=== PATIENT | female | born 1955 | race Caucasian/White ===

== ENCOUNTER 2019-11-17 10:40 | Outpatient (CLI) | payer BC, SELFPAY ==
--- NOTE | ~2019-11-17 | MM_ITS ---
EXAMINATION: MM screening [facility] BI w kavon HISTORY: Screening mammogram TECHNIQUE: Craniocaudal and mediolateral oblique 3-D tomosynthesis images were obtained and synthetic 2-D images were generated. CAD analysis was submitted and interpreted. COMPARISON: Comparison to multiple prior studies sequentially, with oldest reviewed study dated 03/2019. BREAST PARENCHYMAL COMPOSITION: There are scattered areas of fibroglandular density. FINDINGS: There is no evidence of suspicious mass, calcification, or architectural distortion to sugg est malignancy in either breast. There has been no suspicious interval change. IMPRESSION: 1. No mammographic evidence of malignancy. 2. Recommend routine screening mammography in one year. BI-RADS Category 1: Negative Reviewed, dictated and finalized at location A.
== END 2019-11-17 10:41 | disposition home or self-care (01) ==
LOC: ANHIMG 10:44
PROVIDERS: PCP Family Medicine; Visit Provider Obstetrics & Gynecology
DX: Z12.31 Encounter for screening mammogram for malignant neoplasm of breast (principal)
CPT/HCPCS: 77063; 77067

== ENCOUNTER 2021-07-20 10:31 | Outpatient (CLI) | payer MEDICARE, SELFPAY ==
--- NOTE | ~2021-07-20 | XR_ITS ---
EXAMINATION: XR lumbar spine min 4V EXAM DATE: 07/20/2021 11:03 INDICATION: M54.5 - Low back pain-General, No Fall, NKI . TECHNIQUE: Lumber spine frontal, lateral, bilateral oblique projections. Coned down frontal and lat eral L5-S1 lumbar projections for interpretation. There is no prior study for comparison. FINDINGS: There is moderate disc disease at L4-5 and L5-S1, mild to moderate at the L2-3 and L3-4 lev els. The vertebral body heights are maintained. Sacrum, sacroiliac joints, sacral arcuate lines are i ntact. No spondylolysis. The vertebral bodies are aligned in the AP dimension. Mild aortic arterioscl erosis. There are cholecystectomy clips. Moderate lower lumbar facet arthropathy. IMPRESSION: Moderate lower lumbar spondylosis. Reviewed, dictated and finalized at location A. GER OB
== END 2021-07-20 10:32 | disposition home or self-care (01) ==
LOC: ANHIMG 10:37
PROVIDERS: PCP Family Medicine; Visit Provider Family Medicine
DX: M47.896 Other spondylosis, lumbar region (principal)
CPT/HCPCS: 72110

== ENCOUNTER 2021-10-23 15:08 | Outpatient (CLI) | payer MEDICARE, SELFPAY ==
--- NOTE | ~2021-10-23 | DEXA_ITS ---
Bone Density Report Name: ALEXANDRA JJ Age: 66 Sex: Female Ethnicity: White Date of : 1955 Indication: postmenopausal; screening for osteoporosis; Referring Provider: CARLOS ZARAGOZA Study: Bone densitometry was performed. Exam Date: October 23, 2021 Accession number: [id number] Bone Density: Region BMD T-score Z-score Classification AP Spine(L1-L4) 0.951 -0.9 1.1 Normal Femoral Neck (Left) 0.817 -0.3 1.4 Normal Total Hip (Left) 1.061 1.0 2.3 Normal Femoral Neck (Right) 0.750 -0.9 0.8 Normal Total Hip (Right) 0.996 0.4 1.8 Normal Total Hip Mean 1.029 0.7 2.1 Normal World Health Organization criteria for BMD impression classify patients as: Normal (T-score at or above -1.0), Osteopenia (T-score between -1.0 and -2.5), or Osteoporosis (T-score at or below -2.5). 10-year Fracture Risk: FRAX not reported because: All T-scores for Spine Total, Hip Total, Femoral Neck at or above -1.0 Clinical Information Provided by Patient: Patient maximum height was 62 Menopause Age: 49 No regular weight bearing exercise Does not regularly consume dairy products Drinks caffeinated beverages Onset of menses at age 12 Number of children 3 Impression: The patient has normal bone mass. Discussion: BONE DENSITY IS ABOVE THE MINIMUM DESIRABLE LEVEL AT ALL SKELETAL SITES TESTED. This patient?s bone mineral density is above the minimum desirable level (T-score -1.0 or better) at all sites measured. The patient should follow a healthful lifestyle (good nutrition with adequate calcium and vitamin D, and appropriate weight-bearing exercise). Follow-Up: Consider repeating this study in 5 years or sooner if there is some new clinical indication. Reported by: KAREY on 10/29/2021 4:31:00 PM. Reviewed, dictated and finalized at location ABipin [facility]
--- NOTE | ~2021-10-23 | MM_ITS ---
EXAMINATION: MM screening [facility] BI w kavon HISTORY: Screening mammogram TECHNIQUE: Craniocaudal and mediolateral oblique 3-D tomosynthesis images were obtained and synthetic 2-D images were generated. CAD analysis was submitted and interpreted. COMPARISON: 11/17/2019, 10/30/2018, 10/14/2017 bilateral screening mammogram examinations BREAST PARENCHYMAL COMPOSITION: The breasts are almost entirely fatty. FINDINGS: There is no evidence of suspicious mass, calcification, or architectural distortion to sugg est malignancy in either breast. There has been no suspicious interval change. IMPRESSION: 1. No mammographic evidence of malignancy. 2. Recommend routine screening mammography in one year. BI-RADS Category 1: Negative Reviewed, dictated and finalized at location A.
== END 2021-10-23 15:09 | disposition home or self-care (01) ==
PROVIDERS: PCP Family Medicine; Visit Provider Obstetrics & Gynecology
DX: Z12.31 Encounter for screening mammogram for malignant neoplasm of breast (principal); Z78.0 Asymptomatic menopausal state
CPT/HCPCS: 77063; 77067; 77080

== ENCOUNTER 2021-11-22 01:21 | Day surgery (SDC) | payer MEDICARE, SELFPAY ==
[2021-11-06 14:34] VITALS: BMI 38.5
[2021-11-22 09:35] VITALS: BP 153/74; PULSE 64; RESP 20; TEMP 36.3; O2SAT 98; BMI 37.5
[2021-11-22] MEDS: LACTATED RINGERS 1,000 ML 150 ML IV CONT (09:45)
--- NOTE | 2021-11-22 10:16 | WPDGICN ---
Assessment and Plan Assessment and plan (1) Positive colorectal cancer screening using Cologuard test: Code(s): R19.5 - Other fecal abnormalities Status: Acute Assessment and Plan: Patient presents today for colonoscopy screening because of positive Cologuard test. Further recommendations will be given after endoscopy. GI Consult Note Consult date/time: 11/22/21 10:16 HPI: Soila Crane is a 66 year old female presents for screening colonoscopy. Patient recently found to have positive Cologuard test. She reports that her weight appetite bowel movements are normal. She denies abdominal pain. She has had no bleeding. Family history is noncontributory. She presents today for neoplasia screening. Review of Systems Review of Systems: All systems reviewed & are unremarkable except as noted in HPI and below PMFSH Past Medical History Medical History (Updated 11/22/21 @ 10:17 by Julito Whittaker MD) BMI 38.0-38.9,adult BMI 39.0-39.9,adult Breast cancer screening by mammogram Mammogram normal on 10/23/2021. Colon cancer screening Cologuard screening 10/17/2021 was positive. The patient will need a colonoscopy. Eczema Low back pain X-ray of the lumbar spine on 07/20/2021 reveals moderate degenerative disc disease and facet arthropathy in the lower lumbar spine Family History Family History (Updated 12/17/18 @ 11:50 by DOCTOR UNKNOWN) Mother Hypertension Family history of malignant neoplasm of breast in first degree relative Family history of gout Family history of kidney disease Family history of malignant neoplasm of uterus, Onset Age: 88 Family history of malignant neoplasm of breast, Onset Age: 88 Father Family history of coronary artery disease Acute myocardial infarction, Onset Age: 84 Social History Social History Smoking status: Never smoker Alcohol intake: never Substance use: never Substance use type: does not use Living arrangements: with family Spiritual care concerns: No Meds Home Medications and Allergies Home Medications Medication Instructions Recorded Confirmed Type aspirin 81 mg tablet,delayed 81 mg PO DAILY 05/27/19 11/06/21 History release triamcinolone acetonide 0.5 % 1 applic TOPICAL BID PRN #30 g 10/25/20 11/06/21 Rx topical cream lisinopril 40 mg tablet 40 mg PO DAILY #60 tablet 06/22/21 04/26/22 Rx zolpidem 10 mg tablet 10 mg PO .QHS PRN #30 tablet 06/08/21 11/06/21 Rx atorvastatin 10 mg tablet 10 mg PO DAILY #30 tablet 06/11/21 11/06/21 Rx Allergies Allergy/AdvReac Type Severity Reaction Status Date / Time No Known Allergies Allergy Unknown Verified 11/22/21 09:34 Vital Signs Vital Signs - 24 hr 11/22/21 09:35 Temperature 97.3 F L Pulse Rate 64 Respiratory Rate 20 Blood Pressure 153/74 H Pulse Oximetry 98 Exam Narrative: Physical exam reveals patient to be alert. Vital signs stable. HEENT exam is unremarkable. Lungs are clear to auscultation and percussion. Heart is without murmur or extra sounds. Abdominal exam bowel sounds present soft nontender with no organomegaly. Digital external rectal exam is normal.
--- NOTE | 2021-11-22 10:54 | WPDANESEPPF ---
Anes - Initial Pre Proc Eval Procedure: Operation Date: 11/22/21 10:30 Proposed Procedures p Colonoscopy - Julito Whittaker MD Date/Time: 11/22/21 10:54 Surgeon: Julito Whittaker MD Pre Op Diagnosis: positive cologuard Patient Data Age: 66 Gender: F Height: 1.57 m Weight: 93 kg Last Vital Signs Temp 97.3 F L 11/22/21 09:35 Pulse 64 11/22/21 09:35 Resp 20 11/22/21 09:35 BP 153/74 H 11/22/21 09:35 Pulse Ox 98 11/22/21 09:35 Allergies Allergy/AdvReac Type Severity Reaction Status Date / Time No Known Allergies Allergy Unknown Verified 11/22/21 09:34 Home Medications Medication Instructions Recorded Confirmed Type aspirin 81 mg tablet,delayed 81 mg PO DAILY 05/27/19 11/06/21 History release triamcinolone acetonide 0.5 % 1 applic TOPICAL BID PRN #30 g 10/25/20 11/06/21 Rx topical cream lisinopril 40 mg tablet 40 mg PO DAILY #60 tablet 01/02/21 11/06/21 Rx zolpidem 10 mg tablet 10 mg PO .QHS PRN #30 tablet 06/08/21 11/06/21 Rx atorvastatin 10 mg tablet 10 mg PO DAILY #30 tablet 06/11/21 11/06/21 Rx Patient hx anesthesia problems: none Family hx anesthesia problems: none Results Review: All pre-operative results and documents have been reviewed as part of the pre-operative evaluation. [facility] Past Medical History Medical History (Updated 11/22/21 @ 10:17 by Julito Whittaker MD) BMI 38.0-38.9,adult BMI 39.0-39.9,adult Breast cancer screening by mammogram Mammogram normal on 10/23/2021. Colon cancer screening Cologuard screening 10/17/2021 was positive. The patient will need a colonoscopy. Eczema Low back pain X-ray of the lumbar spine on 07/20/2021 reveals moderate degenerative disc disease and facet arthropathy in the lower lumbar spine Family History Family History (Updated 12/17/18 @ 11:50 by DOCTOR UNKNOWN) Mother Hypertension Family history of malignant neoplasm of breast in first degree relative Family history of gout Family history of kidney disease Family history of malignant neoplasm of uterus, Onset Age: 88 Family history of malignant neoplasm of breast, Onset Age: 88 Father Family history of coronary artery disease Acute myocardial infarction, Onset Age: 84 Social History Social History Smoking status: Never smoker Alcohol intake: never Substance use: never Substance use type: does not use Living arrangements: with family Spiritual care concerns: No Anes - Eval Final PreProcedure Day of Procedure 11/22/21 10:54 Patient weight: obese Heart: regular rate and rhythm Lungs: clear to auscultation Airway: Mallampati scale class II Neurological: alert and oriented Last oral intake: >/= 8 hours ASA classification: II Emergent: no Anesthetic plan: proceed Anesthesia type and monitoring: general GIVS and standard monitoring Results Review: All pre-operative results and documents have been reviewed as part of the pre-operative evaluation. Informed Consent: The patient's anesthetic plan and its attendant risks and benefits were discussed with the patient/family/POA. Questions were solicited and answers provided to the satisfaction of the patient/family/POA.
[2021-11-22] MEDS: SIMETHICONE ORAL SUSPENSION 20 MG/0.3 ML 30 ML BOTTLE 0.6 ML IRRIGATION (11:12)
[2021-11-22 11:21] VITALS: BP 152/80; PULSE 68; RESP 16; O2SAT 99
[2021-11-22 11:31] VITALS: BP 129/79; PULSE 59; RESP 16; O2SAT 99
[2021-11-22 11:41] VITALS: BP 151/74; PULSE 61; RESP 15; O2SAT 100
== END 2021-11-22 11:46 | disposition home or self-care (01) ==
PROVIDERS: PCP Family Medicine; Visit Provider Internal Medicine Gastroenterology
PROC: 0DJD8ZZ Inspection of Lower Intestinal Tract, Via Natural or Artificial Opening Endoscopic (ICD-10-PCS; CPT 45378; principal; 2021-11-22 10:30)
DX: R19.5 Other fecal abnormalities (principal); D12.5 Benign neoplasm of sigmoid colon; Z79.82 Long term (current) use of aspirin; L30.9 Dermatitis, unspecified; E66.9 Obesity, unspecified; Z68.37 Body mass index [BMI] 37.0-37.9, adult
CPT/HCPCS: 45385; 88305; J2001; J2704; J7120

== ENCOUNTER → 2023-08-07 09:08 | Outpatient (CLI) | payer MEDICARE, SELFPAY ==
--- NOTE | ~2023-08-07 | XR_ITS ---
XR hand RT min 3V 08/07/2023 09:22 INDICATION: Right hand pain PROCEDURE: 3 views right hand COMPARISON: No prior studies for comparison. FINDINGS: Fracture, dislocation or subluxation is not identified. The soft tissues appear within norm al limits. No foreign bodies are identified. IMPRESSION: 1: NO ACUTE BONE OR JOINT ABNORMALITY IDENTIFIED. Reviewed, dictated and finalized at location L. MBLY PRESS OPERATOR
== END ==
PROVIDERS: PCP Family Medicine; Visit Provider Family Medicine
DX: M79.641 Pain in right hand (principal)
CPT/HCPCS: 73130

== ENCOUNTER 2023-08-13 08:20 | Outpatient (CLI) | payer MEDICARE, SELFPAY ==
--- NOTE | 2023-09-01 17:27 | WPDSLEEPSTUD ---
Sleep Study Date of Study: 08/13/23 Ordering Provider: Farrukh Levin MD Interpreting Physician: Jessie Flood DO Sleep Study Type: Split Polysomnogram Height: 1.57 m Weight: 99.337 kg Body Mass Index: 40.0 Neck Circumference (inches): 17 [place]: 6 Reason for Sleep Study Difficulty falling asleep and staying asleep Sleep History The patient is a 68-year-old female with hypertension, GERD, chronic back pain, eczema, colonic polyps and obesity that had a sleep study ordered by her primary care physician for evaluation of sleep apnea. The patient denies awakening from sleep short of breath. She denies awakening at night with heartburn, belching or cough. She occasionally snores but it is rarely loud enough that others complain. She occasionally has trouble sleeping when she has a cold. She denies waking up gasping for air throughout the night. She denies having breathing problems at night observed by herself or others. She rarely sweats excessively at night. She denies having heart palpitations or irregular heartbeats during the night. She occasionally falls asleep during the day but never while driving. She denies sleep paralysis, cataplexy and hypnagogic / hypnopompic hallucinations. She denies having trouble at school or work due to sleepiness. She denies having nightmares. She denies feeling afraid of going to sleep. She rarely remembers her dreams. She occasionally has thoughts racing through her mind. She denies feeling sad, depressed or anxious. She denies having muscular tension. She occasionally notices parts of her body jerk. She denies kicking during the night. She rarely has crawling and aching feelings in her legs. She denies having leg pain during the night. She denies grinding her teeth during sleep and denies awakening with morning jaw pain. She is occasionally bothered by pain during the day but denies being awakened by pain during the night. She denies waking up feeling stiff in the morning. She denies waking up with sore or achy muscles. She denies waking up with pain in the neck, spine and other joints. She goes to bed between 10:30-11 p.m. on both weekdays and weekends. It takes her 1 hour to fall asleep. She wakes up twice throughout the night and she will play games on her phone until she is able fall back asleep which is usually 1 hour. She wakes up at 8:00 a.m. on both weekdays and weekends. She typically gets 8 hours of sleep per night. She will stay in bed for 30-45 minutes after waking up in the morning. She currently lives with her . She denies consuming any caffeinated beverages within 2 hours of bedtime. She denies engaging in physical exercise before bedtime. She will watch television before falling asleep. She will take naps in afternoon or the evening and they are refreshing. She consumes 40 oz of caffeinated Pepsi per day. She occasionally consumes alcoholic beverages. She denies tobacco and recreational drug use. [facility] Past Medical History Medical History At low risk for fall BMI 38.0-38.9,adult BMI 39.0-39.9,adult Breast cancer screening by mammogram Mammogram normal on 10/23/2021. Chronic low back pain with right-sided sciatica X-ray of the lumbar spine on 07/20/2021 reveals moderate degenerative disc disease and facet arthropathy in the lower lumbar spine Colon cancer screening Cologuard screening 10/17/2021 was positive. The patient will need a colonoscopy. Eczema Left medial elbow Hypersomnia Low back pain X-ray of the lumbar spine on 07/20/2021 reveals moderate degenerative disc disease and facet arthropathy in the lower lumbar spine Obesity (BMI 30-39.9) Polyp of colon (11/22/21) sigmoid colon polyp Tubular villous adenoma on 11/22/2021 with recheck in 5 years. Positive colorectal cancer screening using Cologuard test Right hand pain (~05/2023) X-ray of the right hand on 08/07/2023 was
[2023-09-01 17:42] VITALS: BMI 40.0
== END 2023-08-14 07:54 | disposition home or self-care (01) ==
PROVIDERS: PCP Family Medicine; Visit Provider Family Medicine
DX: G47.33 Obstructive sleep apnea (adult) (pediatric) (principal); G47.10 Hypersomnia, unspecified
CPT/HCPCS: 95811

== ENCOUNTER 2024-01-01 15:19 | Outpatient (CLI) | payer MEDICARE, SELFPAY ==
--- NOTE | ~2024-01-01 | MM_ITS ---
EXAMINATION: MM screening [facility] BI w kavon HISTORY: Screening TECHNIQUE: Craniocaudal and mediolateral oblique 3-D tomosynthesis images were obtained and synthetic 2-D images were generated. CAD analysis was submitted and interpreted. COMPARISON: Comparison to multiple prior studies sequentially, with oldest reviewed study dated 12/2015. BREAST PARENCHYMAL COMPOSITION: Not Dense: Breast are almost entirely fatty. FINDINGS: There is no evidence of suspicious mass, calcification, or architectural distortion to sugg est malignancy in either breast. There has been no suspicious interval change. IMPRESSION: 1. No mammographic evidence of malignancy. 2. Recommend routine screening mammography in one year. BI-RADS Category 1: Negative Reviewed, dictated and finalized at location B.
== END 2024-01-01 15:20 | disposition home or self-care (01) ==
LOC: ANHIMG 15:21
PROVIDERS: PCP Family Medicine; Visit Provider Family Medicine
DX: Z12.31 Encounter for screening mammogram for malignant neoplasm of breast (principal)
CPT/HCPCS: 77063; 77067

== ENCOUNTER 2024-03-11 09:21 | Outpatient (RCR) | payer MEDICARE, SELFPAY | END 2024-05-31 10:50 | disposition home or self-care (01) | LOC: ANHDMC 09:21 | PROVIDERS: PCP Family Medicine; Visit Provider Family Medicine | DX: E11.9 Type 2 diabetes mellitus without complications (principal); Z71.89 Other specified counseling | CPT/HCPCS: G0108 ==

== ENCOUNTER 2024-04-21 10:15 | Outpatient (RCR) | payer MEDICARE, SELFPAY ==
--- NOTE | 2024-03-04 15:04 | PTOPEVAL1 ---
Assessment and note entered by Eli Castillo, PT Evaluation Information Assessment Status Evaluation Diagnosis lumbago with sciatica right side, oth. chronic pain ICD-10 Condition Codes (PT) Pain in low back M54.50,M54.16,Weakness R53.1 Onset multiple years Subjective Information Pt reports has had pain between 5-10 years. But last week noted if moved the wrong way it wasn't good and had difficulty getting up stairs for the night. It's not done that previously. Getting up the steps or uneven edmar, if one hip went lower than the other would cause increased pain. Pt reports when she has lots of pain will get into a comfortable position and rest. Doesn't sit long periods watching TV. Recently trying to get up the stapes, had had a flare up and going up stairs increased pain to a 10 but when lays down gets back to normal Right leg will feel cold and numb and tingly. Will got down the side of the leg to the lower leg but not to the toes Reports has een prescribed meloxicam but hasn't taken it yet Reported Pain Level Pain Score 1: Self Report Assessment PT Clinical Summary Pt presents with c/o right sided back pain and radicular symptoms into right leg. Evaluation shows abnormal standing postures and alignment, decreased ROM of spine secondary to pain, decreased strength RLE compared to left, and likely RLE length discrepancy causing nerve root impingement. Pt will benefit from physical therapy to address deficits, educate patient on modifications to improve outcomes, and reduce pain to allow patient more functional lifestyle. Plan of Care Interventions Electrical Stimulation,Hot Pack/Cold Pack,Manual Therapy,Mechanical Traction,Neuro Re-education, Therapeutic Activities,Therapeutic Exercise,Self- Care/Home Management,Ultrasound,Other Other Interventions NURIS [facility] PT Services Indicated Yes Treatment Frequency and 2x weekly x 10 visits Duration These treatments will address the objective and functional deficits as defined above. The patient will be advanced safely and appropriately in order for the patient to progress towards his/her prior level of function. Additional exercises will be introduced and as well as a comprehensive home exercise program upon d
--- NOTE | 2024-03-04 15:04 | OPREHPOC ---
Outpatient Therapy Plan of Care This is a Multidisciplinary Plan of Care that may contain components documented by all disciplines (PT, OT, and ST.) PT Problem 1 PT Problem #1 Knowledge Deficit PT Goal 1 Goal / Goal Update Pt will be independent in HEP Pt will verbalize understanding of diagnosis and prognosis Target Visit 5 PT Problem 2 PT Problem #2 Pain PT Goal 1 Goal / Goal Update Pt will report lowest pain rating at 0/10 to show improvement in overall discomfort Target Visit 5 PT Goal 2 Goal / Goal Update Pt will report greatest pain level at 3/10 or less to improve ADLs and activities Target Visit 10 PT Problem 3 PT Problem #3 Impaired Range of Motion PT Goal 1 Goal / Goal Update Pt will demo right lateral flexion equal to left lateral flexion Target Visit 5 PT Goal 2 Goal / Goal Update Pt will demo full ROM lumbar spine in all tested planes Target Visit 10 PT Problem 4 PT Problem #4 Impaired Strength PT Goal 1 Goal / Goal Update Pt will demo strength RLE equal to LLE Target Visit 5 PT Goal 2 Goal / Goal Update Pt will demo 4/5 strength in all tested planes
--- NOTE | 2024-04-08 16:03 | PTOPPROG ---
Assessment and note entered by Soila Main, PT Progress Information Assessment Status Progress Diagnosis lumbago with sciatica right side, oth. chronic pain ICD-10 Condition Codes (PT) Pain in low back M54.50,M54.16,Weakness R53.1 Onset multiple years Subjective Information Pt reports has not experienced any flare up of the back pain recently. However continues to feel pain and stiffness in some mornings. reports not so compliant with her exercises. Assessment PT Clinical Summary Pt completed a total of 10 treatment sessions of Physical Therapy and reports feeling significant improvement to her pain levels and mobility. She also states she feels like she's standing and walking better. However, assessment showed continued limitation to ROM and strength at this time. Pt also cont to experience stiffness and discomfort with certain motions and continue to require guidance with proper execution of HEPs. She is agreeable to continued skilled PT to address remaining deficits and improve carryover of therapy gains to her performance of ADLs and IADLs to reduce recurrence of back and LE issues. Plan of Care Interventions Check Out for Orthotic/Pr,Electrical Stimulation, Gait Training,Hot Pack/Cold Pack,Manual Therapy, Mechanical Traction,Neuro Re-education,Patient/ Caregiver Education,Therapeutic Activities, Therapeutic Exercise,Ultrasound Other Interventions IASTM, Taping PT Services Indicated Yes Treatment Frequency and 1-2x/wk x 6 visits Duration These treatments will address the objective and functional deficits as defined above. The patient will be advanced safely and appropriately in order for the patient to progress towards his/her prior level of function. Additional exercises will be introduced and as well as a comprehensive home exercise program upon discharge, if needed, ?to ensure carryover of functional gains achieved in the clinic. This treatment plan has been reviewed and agreement upon by the patient.
--- NOTE | 2024-04-21 11:05 | PTOPDC ---
Assessment and note entered by Eli Castillo, PT Evaluation Information Assessment Status Discharge - Pt Not Present Diagnosis lumbago with sciatica right side, oth. 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 Her pain ranges 0-1/10 in the last week, her HEP has been updated, and she has met all her therapy goals. She is pleased with her progress. Thus patient is being discharged from therapy for completion of program. Plan of Care PT Services Indicated No
== END 2024-05-05 11:13 | disposition home or self-care (01) ==
LOC: ANHHIPT 10:15
PROVIDERS: PCP Family Medicine; Visit Provider Family Medicine
DX: M54.41 Lumbago with sciatica, right side (principal); G89.29 Other chronic pain; R53.1 Weakness
CPT/HCPCS: 97014; 97110; 97112; 97140; 97162; 97530; 97750; G0283